=== PATIENT | female | born 1995 | race Caucasian/White ===

== ENCOUNTER 2018-10-11 14:37 | Emergency (ER) | payer BC ==
[2018-10-11 14:54] VITALS: BP 106/61
--- NOTE | 2018-10-11 15:22 | UC ---
Laceration HPI - HPI Summary HPI Summary: 23 yo female knock a knife block of her kitchen counter and tried to catch it resulting in a laceration to her right index finger occurred minutes ago Td up to date she is right handed minimal bleeding - History Of Current Complaint Chief Complaint: UCLaceration Stated Complaint: LAS RT HAND Time Seen by Provider: 10/11/18 14:55 Hx Obtained From: Patient Hx Last Menstrual Period: [id number] Laceration Location: Finger Mechanism Of Injury: Sharp Trauma Onset/Duration: Sudden Onset Severity: Mild Pain Intensity: 2 Pain Scale Used: 0-10 Numeric Hands: 1 - superficial flap lac - Allergies/Home Medications Allergies/Adverse Reactions: Allergies Allergy/AdvReac Type Severity Reaction Status Date / Time No Known Allergies Allergy Verified 10/11/18 14:54 Home Medications: Home Medications Azelastine 0.15% NASAL(NF) [Astepro 0.15% NASAL (NF)] 2 spray NASAL BID [History Confirmed 10/11/18] Fexofenadine (NF) [Odalis (NF)] 60 mg PO DAILY 10/11/18 [History Confirmed ] Fluticasone NASAL SPRAY 50MCG* [Flonase NASAL SPRAY 50MCG*] 2 spray BOTH NARES DAILY 10/11/18 [History Confirmed 10/11/18] Levocetirizine Dihydrochloride [Xyzal Allergy 24Hr] 5 mg PO DAILY 10/11/18 [ History Confirmed 10/11/18] Norethindrone-E.estradiol-Iron [Lo Loestrin Fe 1-10 Tablet] 1 each PO DAILY [History Confirmed 10/11/18] PMH/Surg Hx/FS Hx/Imm Hx Previously Healthy: Yes - Surgical History Surgical History: None - Family History Known Family History: Negative: Cardiac Disease, Hypertension, Diabetes - Social History Alcohol Use: Weekly Substance Use Type: None Smoking Status (MU): Never Smoked Tobacco - Immunization History Most Recent Tetanus Shot: October 2017 Review of Systems All Other Systems Reviewed And Are Negative: Yes Constitutional: Positive: Negative Skin: Positive: Negative Eyes: Positive: Negative ENT: Positive: Negative Respiratory: Positive: Negative Cardiovascular: Positive: Negative Gastrointestinal: Positive: Negative Genitourinary: Positive: Negative Motor: Positive: Negative Neurovascular: Positive: Negative Musculoskeletal: Positive: Negative Neurological: Positive: Negative Psychological: Positive: Negative Physical Exam Triage Information Reviewed: Yes Appearance: Well-Appearing, No Pain Distress, Well-Nourished Vital Signs: Initial Vital Signs Temp 99.0 F 10/11/18 14:50 Pulse 59 10/11/18 14:50 Resp 16 10/11/18 14:50 BP 106/61 10/11/18 14:50 Pulse Ox 100 10/11/18 14:50 Vital Signs Reviewed: Yes Eyes: Positive: Conjunctiva Clear ENT: Positive: Hearing grossly normal. Negative: Nasal congestion, Nasal drainage, Tonsillar swelling, Tonsillar exudate, Sinus tenderness, Uvula midline Neck: Positive: Supple, Nontender, No Lymphadenopathy Respiratory: Positive: Lungs clear, Normal breath sounds, No respiratory distress, No accessory muscle use Cardiovascular: Positive: RRR, No Murmur Musculoskeletal: Positive: ROM Intact, No Edema Neurological: Positive: Alert Psychological Exam: Normal Skin Exam: Other - see image Laceration Repair - Laceration Repair 1 Description: Linear Laceration Size After Repair: Length (cm) - 2.1, Width (mm) - 1, Depth (mm) - 1- 2 Modified For Repair: No Cleansing Completed Via Routine Prep: Yes Irrigation With Pressure Irrigation Device: Yes Closure Material: Skin Adhesive Laceration Course/Dx - Diagnosis Provider Diagnosis: Laceration of right index finger Discharge - Sign-Out/Discharge Documenting (check all that apply): Patient Departure All imaging exams completed and their final reports reviewed: No Studies - Discharge Plan Condition: Stable Disposition: HOME Patient Education Materials: Skin Adhesive Care (ED) Referrals: No Primary Care Phys,NOPCP [Primary Care Provider] - Additional Instructions: call for any questions return for any problems - Billing Disposition and Condition Condition: STABLE Disposition: Home
== END 2018-10-11 15:30 | disposition home or self-care (01) ==
LOC: UCEAST 14:37 → EDBD 14:37 → UCEAST 15:30
DX: S61.210A Laceration without foreign body of right index finger without damage to nail, initial encounter (principal); W26.0XXA Contact with knife, initial encounter; Y92.010 Kitchen of single-family (private) house as the place of occurrence of the external cause
CPT/HCPCS: 12001; 99201; G0463